=== PATIENT | male | born 1995 | race Caucasian/White ===

== ENCOUNTER 2018-09-04 16:46 | Emergency (ER) | payer BC, OTHER ==
--- NOTE | 2018-09-04 18:52 | UC ---
General HPI - HPI Summary HPI Summary: pt is c/o a non resolving headache x 1 week. describes as throbbing in R yazidi. + nausea, phonophobia and photophobia. no hx injury. + runny nose, sweaty, dizzy and fatigue. admits to similar ALCALA's but those would always resolve with tylenol thus this is worse. did have a problem with a propane leak at the home but that was capped/fixed prior to the onset of this headache. not an abrupt headache. - History of Current Complaint Chief Complaint: UCHeadache Stated Complaint: MIGRAINES X 1 WEEK Time Seen by Provider: 09/04/18 18:40 Hx Obtained From: Patient, Family/Dope Mixer Timing: Constant Pain Intensity: 7 Associated Signs & Symptoms: Negative: Fever - Allergy/Home Medications Allergies/Adverse Reactions: Allergies Allergy/AdvReac Type Severity Reaction Status Date / Time No Known Allergies Allergy Verified 09/04/18 18:04 Home Medications: Home Medications Acetaminophen [Acetaminophen Extra Strength] 1,000 mg PO PRN 09/04/18 [History] PMH/Surg Hx/FS Hx/Imm Hx Neurological History: Other - Headaches - Surgical History Surgical History: None - Family History Known Family History: Positive: Other - no migraine or aneurysm - Social History Lives: With Family Alcohol Use: Rare Substance Use Type: None Smoking Status (MU): Never Smoked Tobacco Review of Systems All Other Systems Reviewed And Are Negative: Yes Constitutional: Positive: Negative Skin: Positive: Negative Eyes: Negative: Blurred Vision, Diplopia ENT: Positive: Negative Respiratory: Positive: Negative Cardiovascular: Positive: Negative Gastrointestinal: Negative: Vomiting, Diarrhea Genitourinary: Positive: Negative Motor: Positive: Negative Neurovascular: Positive: Negative Musculoskeletal: Positive: Negative Neurological: Negative: Weakness, Paresthesia, Numbness Psychological: Positive: Negative Physical Exam Triage Information Reviewed: Yes Appearance: Well-Appearing Vital Signs: Initial Vital Signs Temp 98.6 F 09/04/18 18:06 Pulse 68 09/04/18 18:06 Resp 18 09/04/18 18:06 BP 108/68 09/04/18 18:06 Pulse Ox 100 09/04/18 18:06 Vital Signs Reviewed: Yes Eyes: Positive: Conjunctiva Clear, Other: - PERRL, EOMI ENT: Positive: Pharynx normal, Nasal congestion, Nasal drainage - mucoid R nare , TMs normal, Sinus tenderness - R frontal and maxillary. Neck: Positive: Supple, Nontender, No Lymphadenopathy. Negative: Nuchal Rigidity Respiratory: Positive: Lungs clear, Normal breath sounds Cardiovascular: Positive: RRR, No Murmur Abdomen Description: Positive: Nontender, No Organomegaly, Soft Bowel Sounds: Positive: Present Musculoskeletal: Positive: ROM Intact Neurological: Positive: Other: - A&Ox3. CN 2-12 intact. Steady gait. Negative rhomberg and pronator drift. 5/5 strength 2+ reflexes and sensation intact x4. Steady gait. No temporal cords. Psychological: Positive: Normal Response To Family, Age Appropriate Behavior Skin Exam: Normal Diagnostics - Laboratory Diagnostic Studies Completed/Ordered: influenza=negative - Radiology No standard instances Radiology Interpretation Completed By: Radiologist - CT IMPRESSION: 1. There is mucosal thickening in the paranasal sinuses. There is a dependent fluid level in the right frontal sinus and possibly in the right maxillary sinus, cannot exclude acute sinusitis. 2. No acute intracranial pathology. Re-Evaluation - Re-Evaluation First Eval Re-Evaluation Time: 20:48 Change: Improved - NOTES HEADACHE IS IMPROVING AND WOULD LIKE TO GO HOME. Course/Dx - Differential Dx - Multi-Symptom Differential Diagnoses: Other - no concern for CO poisoning or temporal arteritis. not c/w a thunder clap headache. do not feel he has meningitis or encephalitis. No lesion or bleed on the CT but there is R sinus fluids(see report). will cover for sinusitis. - Diagnoses Provider Diagnosis: Headache, Sinusitis Discharge - Sign-Out/Discharge Documenting (check all that apply): Patient Departure All imaging exams completed and their final reports reviewed: Yes - Discharge Plan Condition: Stable Disposition: HOME Prescriptions: Amoxicillin/Clavulanate TAB* [Augmentin TAB 875*] 875 mg PO BID 10 Days #20 tab methylPREDNISolone [Medrol Dosepak 4 MG*] 0 mg PO .SEE ANDREW INSTRUCTION #1 tab Patient Education Materials: Sinusitis (ED), Acute Headache (DC) Forms: *Work Release Referrals: Sidney Mc MD [Primary Care Provider] - 4 Days Additional Instructions: GO TO ER FOR ANY WORSENING - Billing Disposition and Condition Condition: STABLE Disposition: Home
[2018-09-04] MEDS ORDERED: Ondansetron ODT TAB* 4 MG PO ONE (19:07)
[2018-09-04] MEDS ORDERED: diPHENhydraMINE LIQ* 12.5 MG/5 ML UDC PO ONE (19:07)
[2018-09-04 19:27] LABS: Influenza A Molecular NEGATIVE (Negative); Influenza B Molecular NEGATIVE (Negative)
[2018-09-04] MEDS ORDERED: Ketorolac INJ* 60 MG/2 ML VIAL IM ONE (20:20)
[2018-09-04] MEDS ORDERED: Amoxicillin/Clavulanate TAB* 875 MG PO ONE (20:43)
[2018-09-04 20:52] VITALS: BP 108/64
== END 2018-09-04 20:57 | disposition home or self-care (01) ==
LOC: UCCORT 16:46
DX: R51 Headache (principal); J32.9 Chronic sinusitis, unspecified; R11.0 Nausea; H53.149 Visual discomfort, unspecified; R42 Dizziness and giddiness; R61 Generalized hyperhidrosis; R53.83 Other fatigue
CPT/HCPCS: 70450; 96372; 99203; A9270-GY; G0463; J1885